=== PATIENT | female | born 2000 | race Caucasian/White ===

== ENCOUNTER 2021-08-24 01:48 | Emergency (ER) | payer BC ==
[~2021-08-24] VITALS: Ht 154.9 cm; Wt 63.5 kg
[2021-08-24] MEDS ORDERED: ZOLOFT50 M1 PO (01:55)
[2021-08-24] MEDS ORDERED: BACTRIM DS TAB1 EAC1 PO (01:55)
[2021-08-24 04:04] LABS: HEMOGLOBIN 13.2 gm/dL (12.0-15.0); MCH 31.6 pg (26.0-34.0); MCHC 33.9 g/dL (28.0-37.0); MCV 93.1 fL (80.0-100.0); RBC 4.18 mil/uL (4.20-5.00); WBC 4.7 thou/uL (4.0-11.0)
[2021-08-24 04:09] LABS: CALCIUM 8.3 mg/dL (8.5-10.1); CREATININE 1.1 mg/dL (0.6-1.0); POTASSIUM 3.7 mmol/L (3.5-5.1)
[2021-08-24 04:16] LABS: URINE BILIRUBIN NEGATIVE (Negative); URINE BLOOD TRACE (Negative); URINE CLARITY CLEAR; URINE COLOR YELLOW; URINE GLUCOSE-RANDOM* NEGATIVE (Negative); URINE KETONES NEGATIVE (Negative); URINE LEUKOCYTES-REFLEX TRACE (Negative); URINE NITRITE-REFLEX NEGATIVE (Negative); URINE PROTEIN (DIPSTICK) NEGATIVE (Negative); URINE UROBILINOGEN 0.2 E.U./dl (0.2-1.0)
[2021-08-24] MEDS ORDERED: ZOFRAN ODT4 MG PO (05:02)
[2021-08-24 08:22] VITALS: BP 102/55
== END 2021-08-24 05:15 | disposition home or self-care (01) ==
LOC: ER 01:48
PROVIDERS: Emergency Medicine
DX: R11.2 Nausea with vomiting, unspecified (principal); Z20.822 Contact with and (suspected) exposure to COVID-19; F32.9 Major depressive disorder, single episode, unspecified; Z79.899 Other long term (current) drug therapy